=== PATIENT | male | born 1970 | race Native Hawaiian/Other Pacific Islander ===

== ENCOUNTER 2016-09-05 07:48 | Emergency (ER) | payer OTHER ==
[2016-09-05] MEDS ORDERED: SULFAMETHOXAZOLE 800 MG/TRIMETHOPRIM 160 MG TABLET ONE (08:29)
[2016-09-05] MEDS ORDERED: CEPHALEXIN 500 MG CAPSULE ONE (08:29)
[2016-09-05] MEDS ORDERED: IBUPROFEN 800 MG TABLET ONE (08:30)
[2016-09-05] MEDS ORDERED: HYDROCODONE/ACETAMINOPHEN 5/325MG TABLET ONE (08:30)
--- NOTE | 2016-09-05 09:36 | RAD ---
KNEE RIGHT 1 OR 2 VIEWS COMPARISON: None. HISTORY: Right [id number] amputation with stump abscess. VIEWS: Right knee AP and lateral FINDINGS: Bones: No bone destruction. 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 Joints: Normal Soft tissue: Adjacent to the distal fibula, there is soft tissue swelling and a least one small pocket of air. IMPRESSION: Abscess at the lateral aspect of the right below knee amputation stump. No evidence of osteomyelitis.
== END 2016-09-05 09:10 | disposition home or self-care (01) ==
LOC: ED 07:48
DX: L02.415 Cutaneous abscess of right lower limb (principal); Z89.511 Acquired absence of right leg below knee; F17.220 Nicotine dependence, chewing tobacco, uncomplicated
CPT/HCPCS: 87070; 87205; 87186; 73560; 99284; 10061 ×2; 99283; A9270 ×4